=== PATIENT | female | born 1950 | race Caucasian/White ===

== ENCOUNTER 2021-06-28 07:31 | Day surgery (SDC) | payer OTHER, SELFPAY ==
--- NOTE | 2021-06-28 07:41 | EKG12_ITS ---
Test Reason : PREOP Blood Pressure : / mmHG Vent. Rate : 093 BPM Atrial Rate : 093 BPM P-R Int : 122 ms QRS Dur : 086 ms QT Int : 344 ms P-R-T Axes : 037 026 047 degrees QTc Int : 427 ms Normal sinus rhythm Normal ECG Confirmed by CASSIE CABRERA, FRIDA ([id number]), electronic news gathering editor ODALIS GLOVER ([id number]) on 07/04/2021 10:14:47 AM Referred By: Andres Santos Confirmed By:FRIDA MATTHEWS MD
[2021-06-28 08:08] VITALS: BP 137/68; PULSE 82; RESP 16; TEMP 36.1; O2SAT 99; BMI 21.6
[2021-06-28] MEDS: Lactated Ringers 1,000 ML 100 ML IV ×2 (08:15→10:41)
[2021-06-28 08:29] LABS: International Normalized Ratio 2.6; Prothrombin Time (Protime)PT. 27.1 SECONDS (11.7-14.9)
[2021-06-28 08:35] LABS: Anion Gap 4 (5-15); BUN 18 mg/dL (7-18); Calcium,Total 9.1 mg/dL (8.5-10.1); Chloride 100 mmol/L (98-107); Creatinine, Serum 0.95 mg/dL (0.55-1.02); EST Glomerular Filtration Rate 62 mL/min (>60); Est Glom Filt Rate - Afr Amer 75 mL/min (>60); Estimated Creatinine Clearance 51.58 ml/min; Glucose 95 mg/dL (74-106); Sodium Level 134 mmol/L (136-145)
[2021-06-28] MEDS: 0.9% Normal Saline (Pres. free 10 ML Vial (10:00)
--- NOTE | 2021-06-28 10:13 | PCM.OPRPT ---
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 This resulted in significant limitations of her daily functions through impairment of communication and the above treatment was offered in hopes of improvement. She was eager to proceed. The risks, alternatives, potential complications, and benefits were discussed at length and any questions answered to the patient and/or caregiver's satisfaction. Witnessed informed consent was obtained in the office, and the patient and/or caregiver was agreeable to proceed. Procedure went as follows: The patient was identified in the preoperative holding and brought to the operating room, placed under general anesthesia, and intubated. When appropriate anesthesia was obtained, the head of bed was rotated and the patient prepped and draped in usual sterile fashion. A dental guard or moistened gauze was then placed to protect the upper gums and the Dedo laryngoscope then introduced. Direct laryngoscopy was then carried out. The lateral posterior pharyngeal wall mucosa, tonsillar fossa, vallecula, piriforms, and epiglottis were noted to be normal in appearance. The true and false vocal folds were then brought into view. The patient was then placed in suspension and the operative microscope brought into the field. Botox injection was then carried out for a total of 1.5 units on each side prepared by diluting 100 unit vial with 4 mL of injectable saline and drawing out enough to fill the injection tubing on a butterfly needle and 0.12 ml, an 0.06 mL was then injected into the thyroarytenoid musculature bilaterally. The patient taken out of suspension and returned to anesthesia, was revived, and extubated without complication having tolerated the procedure well. Surgeon: Andres Santos Type of Anesthesia: General Anesthesiologist: Andres Eubanks Special Medications: BOTOX 3 units total Specimen's removed: none Drains: none Estimated Blood Loss (mL): 0 mL Fluids Replaced: 400 mL Grafts/Implants Used: none Admit VTE Documentation VTE Present on Admission: No VTE Mechan Device Prophylaxis: SCD's VTE Pharm Prophylaxis ordered?: No
[2021-06-28 10:18] VITALS: BP 130/61; BP 137/68; PULSE 95; RESP 12; TEMP 36.3; O2SAT 97
--- NOTE | 2021-06-28 10:21 | PCM.DC ---
Discharge Instructions Diet Discharge Diet: No restrictions Activity Discharge Activity: Return to Normal Activity Dressing / Incision Call your doctor if your incision/area has: Increased Pain/ Swelling Call your doctor if you observe: Fever of 101 or Higher and Shortness of breath Follow Up Care Please Follow Up With: Andres Santos MD When: 2 weeks Test Results: Test results from this visit will be discussed in further detail at your follow-up appointment, if applicable. Discharge Plan Admission Primary Reason for Your Visit: Spasmodic dysphonia Attending Provider: Andres Santos Primary Care Provider: Dmitry Childs Discharge Orders/Prescriptions Prescriptions: New acetaminophen 500 mg Tablet 500 mg PO Q4H PRN PRN (Reason: Pain Score 1-5/10) Qty: 0 RF: 0 Continued atorvastatin 40 mg Tablet 40 mg PO DAILY RF: 0 polyethylene glycol 3350 [Miralax] 17 gram Powder In Packet 17 g PO DAILY RF: 0 vitamin [id number] B1 1,000-100 mg/mL Solution 1 ml IM Q30D RF: 0 docusate sodium 50 mg Capsule 50 mg PO DAILY RF: 0 omeprazole 40 mg Capsule,Delayed Release(Dr/Ec) 40 mg PO DAILY RF: 0 acetaminophen 650 mg Tablet Extended Release 650 mg PO Q12H PRN (Reason: Pain) RF: 0 protriptyline 10 mg Tablet 10 mg PO QHS RF: 0 nortriptyline 25 mg Capsule 25 mg PO DAILY RF: 0 promethazine 25 mg Tablet 25 mg PO TID PRN (Reason: Nausea) RF: 0 oxybutynin chloride 5 mg Tablet Extended Release 24hr 5 mg PO DAILY RF: 0 lisinopril-hydrochlorothiazide 10-12.5 mg Tablet 1 tab PO DAILY RF: 0 carbidopa-levodopa [Sinemet] 25-100 mg Tablet 1 tab PO TID RF: 0 biotin 2,500 mcg Tablet 2,500 mcg PO DAILY RF: 0 tramadol 200 mg Tablet Extended Release 24 Hr 200 mg PO DAILY RF: 0 warfarin 10 mg Tablet 5 mg PO MOFR RF: 0 warfarin 5 mg Tablet 7.5 mg PO SUTUWETHSA RF: 0 cholecalciferol (vitamin D3) [Vitamin D3] 25 mcg (1,000 unit) Capsule 25 mcg PO DAILY RF: 0 Referrals / Follow Up: Dmitry Childs MD [Primary Care Provider] - Disposition Disposition (needs filled in before D/C Order can be placed): Home, Self Care
[2021-06-28 10:26] LABS: INR Fingerstick 2.9; Prothrombin Time Fingerstick 32.3 SEC (11.9-14.4)
[2021-06-28 10:30] VITALS: BP 125/52; BP 137/68; PULSE 89; RESP 16; O2SAT 94
[2021-06-28 10:45] VITALS: BP 121/57; BP 137/68; PULSE 92; RESP 16; TEMP 36.1; O2SAT 95
[2021-06-28] MEDS: Acetaminophen 500 MG Tablet PO (11:17)
[2021-06-28 11:49] VITALS: BP 121/62; BP 137/68; PULSE 86; RESP 16; TEMP 36.5; O2SAT 98
== END 2021-06-28 12:02 | disposition home or self-care (01) ==
LOC: SDC 07:35 → AC 07:38
PROVIDERS: PCP Family Medicine; Referring Provider Otolaryngology; Visit Provider Otolaryngology
PROC: (CPT 31571; principal; 2021-06-28 09:25)
DX: J38.3 Other diseases of vocal cords (principal); R49.0 Dysphonia; G20 Parkinson's disease; R13.12 Dysphagia, oropharyngeal phase; R43.0 Anosmia; Z79.01 Long term (current) use of anticoagulants
CPT/HCPCS: 00320; 31571; 36416; 80048; 85610; 87426; 93005; J7120; J0585; J2405; J3490

== ENCOUNTER → 2022-09-29 | Outpatient (CLI) | payer OTHER, SELFPAY ==
--- NOTE | 2022-09-29 16:36 | NEURO ---
NCS and/or EMG Patient Report Ordering Doctor: Sonny Garg DATE OF SERVICE: 09/29/22 Indication: Bilateral hand/wrist pain with associated weakness, numbness and tingling in the fingers. Findings: Nerve conduction studies were performed in the right and left upper extremities. The right median motor study recording the abductor pollicis brevis showed a normal amplitude, normal distal latency and normal conduction velocity. The right ulnar motor study recording the abductor digiti minimi showed a normal amplitude, normal distal latency and normal conduction velocity. No conduction block or focal slowing was present across the elbow. Right median-ulnar lumbrical / interosseous motor latencies showed a prolonged median latency compared to the ulnar. The right median sensory response recording digit two showed a normal amplitude, latency and conduction velocity. The right ulnar sensory response recording digit five showed a normal amplitude, latency and conduction velocity. The right radial sensory response recording over the extensor snuff box showed a normal amplitude, latency and conduction velocity. The left median motor study recording the abductor pollicis brevis showed a normal amplitude, slightly prolonged distal latency and normal conduction velocity. The left ulnar motor study recording the abductor digiti minimi showed a normal amplitude, normal distal latency and normal conduction velocity. No conduction block or focal slowing was present across the elbow. Left median-ulnar lumbrical / interosseous motor latencies showed a normal median latency compared to the ulnar. The left median sensory response recording digit two showed a normal amplitude, latency and conduction velocity. The left ulnar sensory response recording digit five was intermittently present, but technically challenging to record reliably. The left radial sensory response recording over the extensor snuff box showed a normal amplitude, latency and conduction velocity. Needle EMG of the upper extremity muscles was deferred given the patient was on therapeutic anticoagulation. The risk of the needle exam was felt to outweigh the added yield of this component. Impression: This is a mildly normal study. 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 A neuromuscular ultrasound of the median nerves could be considered for additional localization and characterization of this subtle electrophysiologic findings. Cecilio Acevedo D.O. Multi Select Codes Neurology Neurology Interp Codes: 46[address]-[address] [facility] cndj test 13/> studies (interp)
== END | disposition home or self-care (01) ==
LOC: PSN 12:54
PROVIDERS: PCP Family Medicine; Referring Provider Psychiatry & Neurology Neurology; Visit Provider Psychiatry & Neurology Neurology
DX: G56.03 Carpal tunnel syndrome, bilateral upper limbs (principal); R53.1 Weakness; M79.642 Pain in left hand; M79.641 Pain in right hand
CPT/HCPCS: 95913

== ENCOUNTER → 2023-12-08 | Outpatient (CLI) | payer MEDICARE, SELFPAY ==
[2023-12-08 17:36] LABS: Hematocrit 27.6 % (37-47); Hemoglobin 8.2 g/dL (12.0-15.0); Mean Corp Hgb Conc 29.7 g/dL (32-36); Mean Corpuscular Hgb 24.7 pg (27.0-32.0); Mean Corpuscular Volume 83.1 fL (81-99); Mean Platelet Vol. 9.1 fl (6.2-12.0); Platelet Count 322 K/mm3 (150-450); RBC Distribution Width CV 13.7 % (11.6-14.6); RBC Distribution Width SD 41.5 fl (35.1-43.9); Red Blood Count 3.32 M/mm3 (4.2-5.4); White Blood Count 4.8 K/mm3 (4.4-11.0)
[2023-12-08 17:55] LABS: Vitamin B12 > 2000 pg/mL (211-911)
[2023-12-08 18:06] LABS: ALB/GLOB Ratio 1.2 RATIO (0.9-2.4); AST(SGOT) 20 U/L (15-37); Alanine Aminotransfer ALT/SGPT 19 U/L (13-56); Albumin, Serum 3.8 g/dL (3.2-5.0); Alkaline Phosphatase 62 U/L (45-117); Anion Gap 7 (5-15); BUN 19 mg/dL (7-18); BUN/Creat Ratio 16.8 RATIO (10-20); Calcium,Total 9.2 mg/dL (8.5-10.1); Chloride 107 mmol/L (98-107); Creatinine, Serum 1.13 mg/dL (0.55-1.02); EST Glomerular Filtration Rate 50 mL/min (>60); Est Glom Filt Rate - Afr Amer 61 mL/min (>60); Globulin 3.3 g/dL (2.2-4.2); Glucose 95 mg/dL (74-106); Protein, Total 7.1 g/dL (6.4-8.2); Sodium Level 139 mmol/L (136-145); Thyroid Stim Hormone (TSH) 1.31 uIU/mL (0.358-3.74)
[2023-12-16 17:07] LABS: Alpha-1-Globulins 0.2 g/dL (0.0-0.4); Alpha-2-Globulins 0.6 g/dL (0.4-1.0); Free Kappa Light Chains 30.6 mg/L (3.3-19.4); Free Lambda Light Chains 21.1 mg/L (5.7-26.3); Gamma Globulin 0.9 g/dL (0.4-1.8); Immunoglobulin A 140 mg/dL (64-422); Immunoglobulin G 920 mg/dL (586-1602); Immunoglobulin M 98 mg/dL (26-217); PROEL- TOTAL PROTEIN 6.6 g/dL (6.0-8.5); Vitamin B1, Thiamine 100.6 nmol/L (66.5-200.0)
== END | disposition home or self-care (01) ==
LOC: MTLAB 14:32
PROVIDERS: PCP Family Medicine; Referring Provider Psychiatry & Neurology Neurology; Visit Provider Psychiatry & Neurology Neurology
DX: G62.9 Polyneuropathy, unspecified (principal)
CPT/HCPCS: 36415; 80053; 82607; 82746; 82784; 83883; 84165; 84425; 84443; 85027; 86334

== ENCOUNTER → 2024-11-17 | Outpatient (CLI) | payer MEDICARE, SELFPAY ==
--- NOTE | 2024-11-17 11:43 | RAD_ITS ---
PROCEDURE: SHOULDER MIN 2 VIEWS REASON FOR EXAM: Left shoulder pain. TECHNIQUE: Five view left shoulder series COMPARISON: None. RAD/Shoulder min 2 Views IMPRESSION: The left acromioclavicular joint demonstrates no more than minimal degenerative changes. Moderate overall left glenohumeral joint degenerative changes are seen, but wit h severe associated joint narrowing. Satisfactory osseous alignment is noted. No fracture site is identified Reading Location: [id number]
--- NOTE | 2024-11-17 11:43 | RAD_ITS ---
PROCEDURE: CERV SPINE 2 OR 3 VIEWS REASON FOR EXAM: Pain. TECHNIQUE: 5 views of the cervical spine. COMPARISON: None. FINDINGS: Normal vertebral body heights. No visible fracture. Moderate discogenic degenerative changes. Exaggerated kyphosis limits assessment. Prevertebral soft tissues are unremarkable. RAD/Cerv Spine 2 or 3 Views IMPRESSION: Moderate cervical spondylosis. Exaggerated kyphosis. Reading Location: [id number]
== END | disposition home or self-care (01) ==
LOC: MTRAD 11:42
PROVIDERS: PCP Family Medicine; Referring Provider Psychiatry & Neurology Neurology; Visit Provider Psychiatry & Neurology Neurology
DX: M54.2 Cervicalgia (principal); M25.512 Pain in left shoulder
CPT/HCPCS: 72040; 73030

== ENCOUNTER → 2025-02-14 | Outpatient (CLI) | payer MEDICARE, SELFPAY | END | disposition home or self-care (01) | LOC: MTLAB 12:48 | PROVIDERS: PCP Family Medicine; Referring Provider Psychiatry & Neurology Neurology; Visit Provider Psychiatry & Neurology Neurology | DX: G62.9 Polyneuropathy, unspecified (principal) | CPT/HCPCS: 86335 ==